=== PATIENT | male | born 1960 | race Caucasian/White ===

== ENCOUNTER 2018-02-17 18:37 | Emergency (ER) | payer MEDICAID ==
[~2018-02-17] VITALS: Ht 180.3 cm; Wt 90.9 kg
[2018-02-17 19:36] LABS: BASOPHILS % (AUTO) 0.4 % (0.0-2.0); EOSINOPHILS % (AUTO) 3.4 % (1.0-6.0); HEMATOCRIT 45.7 % (41-53); HEMOGLOBIN 15.6 g/dL (13.5-17.5); LYMPHOCYTES % (AUTO) 22.2 % (22.0-44.0); MEAN CORPUSCULAR HEMOGLOBIN 29.1 pg (26.0-34.0); MEAN CORPUSCULAR HGB CONC 34.1 G/dL (31.0-37.0); MEAN CORPUSCULAR VOLUME 85 fL (80-100); MONOCYTES # (AUTO) 0.6 K/uL (0.1-1.0); MONOCYTES % (AUTO) 7.1 % (2.0-9.0); NEUTROPHILS % (AUTO) 66.9 % (40.0-70.0); PLATELET COUNT (AUTO) 278 K/uL (150-450); RED BLOOD CELL COUNT(AUTO) 5.35 MIL/uL (4.50-5.90); RED CELL DISTRIBUTION WIDTH 14.1 % (11.5-14.5)
[2018-02-17 20:02] LABS: ALANINE AMINOTRANSFERASE 41 U/L (12-78); ALBUMIN 3.7 g/dL (3.4-5.0); ALKALINE PHOSPHATASE 94 U/L (46-116); ANION GAP 8 mmol/L (8-16); ASPARTATE AMINOTRANSFERASE 40 U/L (15-37); BILIRUBIN,TOTAL 0.4 mg/dL (0.1-1.0); CALCIUM, TOTAL 8.7 mg/dL (8.8-10.5); CARBON DIOXIDE 30 mmol/L (22-29); CHLORIDE 104 mmol/L (98-107); CREATININE 0.87 mg/dL (0.60-1.30); GLOMERULAR FILTR. RATE CALC > 60 mL/min (>60); GLUCOSE,RANDOM 107 mg/dL (70-110); POTASSIUM 3.9 mmol/L (3.5-5.1); SODIUM SERUM 142 mmol/L (136-145); TOTAL PROTEIN, SERUM 7.9 g/dL (6.4-8.2); UREA NITROGEN, BLOOD 12 mg/dL (7-18)
[2018-02-17 20:14] LABS: AMPHET/METH SCREEN,URINE POSITIVE (NEGATIVE); BARBITURATE SCREEN, URINE NEGATIVE (NEGATIVE); BENZODIAZEPINES SCREEN,URINE NEGATIVE (NEGATIVE); CANNABINOID SCREEN,URINE POSITIVE (NEGATIVE); COCAINE SCREEN,URINE NEGATIVE (NEGATIVE); METHADONE SCREEN, URINE NEGATIVE (NEGATIVE); OPIATE SCREEN,URINE NEGATIVE (NEGATIVE)
[2018-02-17 20:16] LABS: PHENCYCLIDINE SCREEN,URINE NEGATIVE (NEGATIVE)
[2018-02-17] MEDS: DiphenhydrAMINE HCL 25 MG/10 ML ELIXIR UDCUP PO ONE (21:31)
[2018-02-17] MEDS: LORazepam 2 MG TABLET PO ONE (21:31)
[2018-02-17 21:47] VITALS: BP 157/99
== END 2018-02-17 21:52 | disposition home or self-care (01) ==
LOC: EMS 18:38
DX: F41.9 Anxiety disorder, unspecified (principal); F31.9 Bipolar disorder, unspecified; F20.9 Schizophrenia, unspecified; I10 Essential (primary) hypertension; F15.10 Other stimulant abuse, uncomplicated; F12.90 Cannabis use, unspecified, uncomplicated; F17.210 Nicotine dependence, cigarettes, uncomplicated
CPT/HCPCS: 36415; 80053; 80307; 85025; 99284; 99406; G0480

== ENCOUNTER 2018-02-19 20:55 | Inpatient (IN) | payer MEDICAID ==
[~2018-02-19] VITALS: Ht 180.3 cm; Wt 86.6 kg
[2018-02-19 22:52] LABS: BASOPHILS % (AUTO) 0.5 % (0.0-2.0); EOSINOPHILS % (AUTO) 2.5 % (1.0-6.0); HEMATOCRIT 44.5 % (41-53); HEMOGLOBIN 15.2 g/dL (13.5-17.5); LYMPHOCYTES # (AUTO) 2.1 K/uL (1.0-4.8); LYMPHOCYTES % (AUTO) 16.6 % (22.0-44.0); MEAN CORPUSCULAR HEMOGLOBIN 28.9 pg (26.0-34.0); MEAN CORPUSCULAR HGB CONC 34.2 G/dL (31.0-37.0); MEAN CORPUSCULAR VOLUME 84 fL (80-100); MONOCYTES # (AUTO) 0.9 K/uL (0.1-1.0); MONOCYTES % (AUTO) 7.3 % (2.0-9.0); NEUTROPHILS # (AUTO) 9.3 K/uL (1.8-7.7); NEUTROPHILS % (AUTO) 73.1 % (40.0-70.0); PLATELET COUNT (AUTO) 297 K/uL (150-450); RED BLOOD CELL COUNT(AUTO) 5.27 MIL/uL (4.50-5.90); RED CELL DISTRIBUTION WIDTH 14.2 % (11.5-14.5)
[2018-02-19 23:00] LABS: ANION GAP 12 mmol/L (8-16); CALCIUM, TOTAL 9.2 mg/dL (8.8-10.5); CARBON DIOXIDE 27 mmol/L (22-29); CHLORIDE 99 mmol/L (98-107); CREATININE 0.89 mg/dL (0.60-1.30); GLOMERULAR FILTR. RATE CALC > 60 mL/min (>60); GLUCOSE,RANDOM 100 mg/dL (70-110); POTASSIUM 3.5 mmol/L (3.5-5.1); SODIUM SERUM 138 mmol/L (136-145); UREA NITROGEN, BLOOD 14 mg/dL (7-18)
[2018-02-19 23:06] LABS: ALANINE AMINOTRANSFERASE 39 U/L (12-78); ALBUMIN 3.9 g/dL (3.4-5.0); ALKALINE PHOSPHATASE 88 U/L (46-116); ASPARTATE AMINOTRANSFERASE 37 U/L (15-37); BILIRUBIN,TOTAL 0.6 mg/dL (0.1-1.0); TOTAL PROTEIN, SERUM 7.7 g/dL (6.4-8.2)
[2018-02-19] MEDS ORDERED: TraZODone HCL 50 MG TABLET PO ONE (23:15)
[2018-02-19] MEDS ORDERED: LORazepam 2 MG TABLET PO ONE (23:15)
[2018-02-19] MEDS ORDERED: ONDANSETRON HCL 4 MG TABLET PO ONE (23:15)
[2018-02-19] MEDS ORDERED: RisperiDONE CONC 2 MG/2 ML SOLUTION ORAL.SYG PO ONE (23:15)
[2018-02-19 23:23] LABS: AMPHET/METH SCREEN,URINE POSITIVE (NEGATIVE); BARBITURATE SCREEN, URINE NEGATIVE (NEGATIVE); BENZODIAZEPINES SCREEN,URINE NEGATIVE (NEGATIVE); CANNABINOID SCREEN,URINE POSITIVE (NEGATIVE); COCAINE SCREEN,URINE NEGATIVE (NEGATIVE); METHADONE SCREEN, URINE NEGATIVE (NEGATIVE); OPIATE SCREEN,URINE NEGATIVE (NEGATIVE)
[2018-02-19 23:27] LABS: PHENCYCLIDINE SCREEN,URINE NEGATIVE (NEGATIVE)
[2018-02-19] MEDS ORDERED: RisperiDONE 2 MG TABLET PO ONE ×2 (23:30)
[2018-02-19] MEDS ORDERED: HEPATITIS A VACCINE, INACTI [ADULT] 1,440 UNITS/ML VIAL IM ONE (23:30)
[2018-02-19] MEDS ORDERED: ZOLPIDEM TARTRATE 10 MG TABLET PO PRN (23:45)
[2018-02-19] MEDS ORDERED: HALOPERIDOL 5 MG TABLET PO PRN (23:45)
[2018-02-20 02:32] VITALS: BP 105/60
[2018-02-20] MEDS ORDERED: PNEUMOCOCCAL VACCINE POLYVALENT 0.5 ML VIAL [PPSV23] IM ONE (02:45)
[2018-02-20 07:37] LABS: HEMOGLOBIN A1C 5.9 % (4.5-6.2)
[2018-02-20 07:51] LABS: FREE T4 (FREE THYROXINE) 0.91 ng/dL (0.76-1.46); THYROID STIMULATING HORMONE 1.52 uIU/mL (0.36-3.74)
[2018-02-20 08:33] VITALS: BP 127/80
[2018-02-20 16:54] VITALS: BP 117/74
[2018-02-20] MEDS: MIRTAZAPINE 15 MG TABLET PO SCH (21:04)
[2018-02-21 08:14] VITALS: BP 133/83
[2018-02-21] MEDS: ARIPiprazole 5 MG TABLET PO SCH (10:31)
[2018-02-21 17:00] VITALS: BP 149/98
[2018-02-21] MEDS: MIRTAZAPINE 15 MG TABLET PO SCH (21:15)
[2018-02-22] MEDS ORDERED: CloNIDine HCL 0.1 MG TABLET PO PRN (00:45)
[2018-02-22 09:37] VITALS: BP 142/82
[2018-02-22] MEDS: ARIPiprazole 5 MG TABLET PO SCH (10:14)
[2018-02-22] MEDS: LISINOPRIL 10 MG TABLET PO SCH (10:15)
[2018-02-22] MEDS ORDERED: TUBERCULIN, PURIFIED PROTEIN DERIVATIVE 5 TU/0.1 ML SYG ID ONE (13:30)
[2018-02-22 16:00] VITALS: BP 137/90
[2018-02-22] MEDS: MIRTAZAPINE 15 MG TABLET PO SCH (21:29)
[2018-02-23 07:19] LABS: BASOPHILS % (AUTO) 0.4 % (0.0-2.0); EOSINOPHILS % (AUTO) 7.6 % (1.0-6.0); HEMATOCRIT 44.8 % (41-53); HEMOGLOBIN 15.2 g/dL (13.5-17.5); LYMPHOCYTES # (AUTO) 1.4 K/uL (1.0-4.8); MEAN CORPUSCULAR VOLUME 85 fL (80-100); MONOCYTES # (AUTO) 0.5 K/uL (0.1-1.0); MONOCYTES % (AUTO) 7.4 % (2.0-9.0); NEUTROPHILS # (AUTO) 4.1 K/uL (1.8-7.7); NEUTROPHILS % (AUTO) 62.6 % (40.0-70.0); PLATELET COUNT (AUTO) 241 K/uL (150-450); RED BLOOD CELL COUNT(AUTO) 5.25 MIL/uL (4.50-5.90)
[2018-02-23 07:47] LABS: ALANINE AMINOTRANSFERASE 31 U/L (12-78); ALBUMIN 3.4 g/dL (3.4-5.0); ALKALINE PHOSPHATASE 76 U/L (46-116); ANION GAP 6 mmol/L (8-16); ASPARTATE AMINOTRANSFERASE 28 U/L (15-37); BILIRUBIN,TOTAL 0.4 mg/dL (0.1-1.0); CALCIUM, TOTAL 8.4 mg/dL (8.8-10.5); CARBON DIOXIDE 28 mmol/L (22-29); CHLORIDE 104 mmol/L (98-107); CREATININE 0.61 mg/dL (0.60-1.30); GLOMERULAR FILTR. RATE CALC > 60 mL/min (>60); GLUCOSE,RANDOM 114 mg/dL (70-110); POTASSIUM 4.2 mmol/L (3.5-5.1); SODIUM SERUM 138 mmol/L (136-145); TOTAL PROTEIN, SERUM 7.3 g/dL (6.4-8.2); UREA NITROGEN, BLOOD 15 mg/dL (7-18)
[2018-02-23 09:17] VITALS: BP 136/72
[2018-02-23] MEDS: LISINOPRIL 10 MG TABLET PO SCH (09:31)
[2018-02-23] MEDS: ARIPiprazole 5 MG TABLET PO SCH (09:31)
[2018-02-23] MEDS: NICOTINE 14 MG/24 HOUR PATCH TD SCH (09:35)
[2018-02-23] MEDS: LORazepam 2 MG TABLET PO PRN (15:57)
[2018-02-23 16:30] VITALS: BP 120/68
[2018-02-23] MEDS: MIRTAZAPINE 30 MG TABLET PO SCH (20:34)
[2018-02-24 05:47] VITALS: BP 127/74
[2018-02-24] MEDS: LISINOPRIL 10 MG TABLET PO SCH (09:50)
[2018-02-24] MEDS: NICOTINE 14 MG/24 HOUR PATCH TD SCH (09:51)
[2018-02-24] MEDS: ARIPiprazole 10 MG TABLET PO SCH (09:52)
[2018-02-24] MEDS: LORazepam 2 MG TABLET PO PRN (10:04)
[2018-02-24 12:26] VITALS: BP 143/91
[2018-02-24 17:16] VITALS: BP 127/75
[2018-02-24] MEDS: MIRTAZAPINE 30 MG TABLET PO SCH (20:42)
[2018-02-25 08:33] VITALS: BP 138/92
[2018-02-25] MEDS: ARIPiprazole 10 MG TABLET PO SCH (09:50)
[2018-02-25] MEDS: LISINOPRIL 10 MG TABLET PO SCH (09:50)
[2018-02-25] MEDS: NICOTINE 14 MG/24 HOUR PATCH TD SCH (09:51)
[2018-02-25] MEDS ORDERED: ARIP10TA8 PO (12:19)
[2018-02-25] MEDS ORDERED: MIRT30 PO (12:22)
[2018-02-25] MEDS ORDERED: LISI-661 PO (12:24)
[2018-02-25] MEDS: LORazepam 2 MG TABLET PO PRN (12:49)
== END 2018-02-25 15:00 | disposition home or self-care (01) | DRG 750 ==
LOC: EMS 20:55 → 3EI 02-20 00:29
PROVIDERS: ADMIT Psychiatry & Neurology Psychiatry; ATTEND Psychiatry & Neurology Psychiatry
PROC: 3E0234Z Introduction of Serum, Toxoid and Vaccine into Muscle, Percutaneous Approach (ICD-10-PCS; principal; 2018-02-20)
DX: F25.0 Schizoaffective disorder, bipolar type (principal); Z59.0 Homelessness; D72.829 Elevated white blood cell count, unspecified; F12.10 Cannabis abuse, uncomplicated; F15.10 Other stimulant abuse, uncomplicated; F43.10 Post-traumatic stress disorder, unspecified; F17.210 Nicotine dependence, cigarettes, uncomplicated; I10 Essential (primary) hypertension; Z79.899 Other long term (current) drug therapy; Z80.3 Family history of malignant neoplasm of breast; Z82.5 Family history of asthma and other chronic lower respiratory diseases; Z91.5 Personal history of self-harm; Z23 Encounter for immunization
CPT/HCPCS: 80074; 83036; 84439; 84443; 90632; G0480; Q0162

== ENCOUNTER 2018-02-26 11:26 | Emergency (ER) | payer MEDICAID ==
[~2018-02-26] VITALS: Ht 180.3 cm; Wt 86.8 kg
[~2018-02-26 11:26] MED LIST: ARIP10TA8 PO; LISI-661 PO; MIRT30 PO
[2018-02-26 11:59] LABS: BASOPHILS % (AUTO) 0.5 % (0.0-2.0); EOSINOPHILS % (AUTO) 0.6 % (1.0-6.0); HEMATOCRIT 47.6 % (41-53); HEMOGLOBIN 16.1 g/dL (13.5-17.5); LYMPHOCYTES # (AUTO) 1.5 K/uL (1.0-4.8); LYMPHOCYTES % (AUTO) 17.5 % (22.0-44.0); MEAN CORPUSCULAR HEMOGLOBIN 28.9 pg (26.0-34.0); MEAN CORPUSCULAR HGB CONC 33.8 G/dL (31.0-37.0); MEAN CORPUSCULAR VOLUME 85 fL (80-100); MONOCYTES # (AUTO) 0.6 K/uL (0.1-1.0); MONOCYTES % (AUTO) 7.2 % (2.0-9.0); NEUTROPHILS # (AUTO) 6.3 K/uL (1.8-7.7); NEUTROPHILS % (AUTO) 74.2 % (40.0-70.0); PLATELET COUNT (AUTO) 288 K/uL (150-450); RED BLOOD CELL COUNT(AUTO) 5.58 MIL/uL (4.50-5.90); RED CELL DISTRIBUTION WIDTH 14.3 % (11.5-14.5)
[2018-02-26 12:13] LABS: ANION GAP 11 mmol/L (8-16); CALCIUM, TOTAL 9.2 mg/dL (8.8-10.5); CARBON DIOXIDE 26 mmol/L (22-29); CHLORIDE 99 mmol/L (98-107); CREATININE 0.66 mg/dL (0.60-1.30); GLOMERULAR FILTR. RATE CALC > 60 mL/min (>60); GLUCOSE,RANDOM 115 mg/dL (70-110); POTASSIUM 4.1 mmol/L (3.5-5.1); SODIUM SERUM 136 mmol/L (136-145); UREA NITROGEN, BLOOD 16 mg/dL (7-18)
[2018-02-26 12:23] LABS: ALANINE AMINOTRANSFERASE 31 U/L (12-78); ALBUMIN 4.2 g/dL (3.4-5.0); ALKALINE PHOSPHATASE 90 U/L (46-116); ASPARTATE AMINOTRANSFERASE 30 U/L (15-37); BILIRUBIN,TOTAL 0.5 mg/dL (0.1-1.0); TOTAL PROTEIN, SERUM 8.7 g/dL (6.4-8.2)
[2018-02-26 18:01] LABS: AMPHET/METH SCREEN,URINE POSITIVE (NEGATIVE); BARBITURATE SCREEN, URINE NEGATIVE (NEGATIVE); BENZODIAZEPINES SCREEN,URINE NEGATIVE (NEGATIVE); CANNABINOID SCREEN,URINE POSITIVE (NEGATIVE); COCAINE SCREEN,URINE NEGATIVE (NEGATIVE); METHADONE SCREEN, URINE NEGATIVE (NEGATIVE); OPIATE SCREEN,URINE NEGATIVE (NEGATIVE)
[2018-02-26 18:43] VITALS: BP 139/97
[2018-02-26 18:54] LABS: PHENCYCLIDINE SCREEN,URINE NEGATIVE (NEGATIVE)
== END 2018-02-26 20:10 | disposition home or self-care (01) ==
LOC: EMS 11:27
DX: F41.9 Anxiety disorder, unspecified (principal); F31.9 Bipolar disorder, unspecified; F43.10 Post-traumatic stress disorder, unspecified; F15.10 Other stimulant abuse, uncomplicated; F17.210 Nicotine dependence, cigarettes, uncomplicated; I10 Essential (primary) hypertension; F20.9 Schizophrenia, unspecified; F12.90 Cannabis use, unspecified, uncomplicated; Z79.899 Other long term (current) drug therapy
CPT/HCPCS: 36415; 80053; 80307; 85025; 99284; 99406; G0480

== ENCOUNTER 2018-03-02 18:01 | Emergency (ER) | payer MEDICAID ==
[~2018-03-02] VITALS: Ht 180.3 cm; Wt 90.9 kg
[2018-03-02 19:06] LABS: BASOPHILS % (AUTO) 0.4 % (0.0-2.0); EOSINOPHILS % (AUTO) 6.9 % (1.0-6.0); HEMOGLOBIN 13.4 g/dL (13.5-17.5); LYMPHOCYTES # (AUTO) 2.2 K/uL (1.0-4.8); LYMPHOCYTES % (AUTO) 24.3 % (22.0-44.0); MEAN CORPUSCULAR HEMOGLOBIN 28.7 pg (26.0-34.0); MEAN CORPUSCULAR HGB CONC 33.4 G/dL (31.0-37.0); MEAN CORPUSCULAR VOLUME 86 fL (80-100); MONOCYTES # (AUTO) 0.7 K/uL (0.1-1.0); MONOCYTES % (AUTO) 7.9 % (2.0-9.0); NEUTROPHILS # (AUTO) 5.5 K/uL (1.8-7.7); NEUTROPHILS % (AUTO) 60.5 % (40.0-70.0); PLATELET COUNT (AUTO) 227 K/uL (150-450); RED BLOOD CELL COUNT(AUTO) 4.66 MIL/uL (4.50-5.90)
[2018-03-02 19:27] LABS: ANION GAP 8 mmol/L (8-16); CALCIUM, TOTAL 8.2 mg/dL (8.8-10.5); CARBON DIOXIDE 27 mmol/L (22-29); CHLORIDE 104 mmol/L (98-107); CREATININE 0.76 mg/dL (0.60-1.30); GLOMERULAR FILTR. RATE CALC > 60 mL/min (>60); GLUCOSE,RANDOM 104 mg/dL (70-110); POTASSIUM 4.1 mmol/L (3.5-5.1); SODIUM SERUM 139 mmol/L (136-145); UREA NITROGEN, BLOOD 23 mg/dL (7-18)
[2018-03-02 19:33] LABS: ALANINE AMINOTRANSFERASE 35 U/L (12-78); ALBUMIN 3.2 g/dL (3.4-5.0); ALKALINE PHOSPHATASE 99 U/L (46-116); ASPARTATE AMINOTRANSFERASE 34 U/L (15-37); BILIRUBIN,TOTAL 0.3 mg/dL (0.1-1.0); TOTAL PROTEIN, SERUM 6.5 g/dL (6.4-8.2)
[2018-03-02 19:35] LABS: B-TYPE NATRIURETIC PEPTIDE 16 pg/mL (0-100)
[2018-03-02 22:00] VITALS: BP 122/70
[2018-03-02] MEDS ORDERED: LORazepam 1 MG TABLET PO ONE (22:00)
[2018-03-02] MEDS ORDERED: GuaiFENesin/D-METHORPHAN [SUGAR-FREE] 200-20MG/10 ML SYRUP UDCUP PO ONE (22:00)
[2018-03-02] MEDS ORDERED: ACETAMINOPHEN 500 MG TABLET PO ONE (22:00)
== END 2018-03-02 22:32 | disposition home or self-care (01) ==
LOC: EMS 18:01
DX: J40 Bronchitis, not specified as acute or chronic (principal); F41.9 Anxiety disorder, unspecified; F15.10 Other stimulant abuse, uncomplicated; F17.210 Nicotine dependence, cigarettes, uncomplicated; F12.90 Cannabis use, unspecified, uncomplicated; I10 Essential (primary) hypertension; F20.9 Schizophrenia, unspecified; Z79.899 Other long term (current) drug therapy
CPT/HCPCS: 93005; 99406

== ENCOUNTER 2018-03-03 20:41 | Emergency (ER) | payer MEDICAID ==
[2018-03-03 21:50] LABS: BASOPHILS % (AUTO) 0.4 % (0.0-2.0); EOSINOPHILS % (AUTO) 5.4 % (1.0-6.0); HEMATOCRIT 40.6 % (41-53); HEMOGLOBIN 13.7 g/dL (13.5-17.5); LYMPHOCYTES # (AUTO) 2.4 K/uL (1.0-4.8); LYMPHOCYTES % (AUTO) 26.9 % (22.0-44.0); MEAN CORPUSCULAR HEMOGLOBIN 28.8 pg (26.0-34.0); MEAN CORPUSCULAR HGB CONC 33.7 G/dL (31.0-37.0); MEAN CORPUSCULAR VOLUME 86 fL (80-100); MONOCYTES # (AUTO) 0.6 K/uL (0.1-1.0); MONOCYTES % (AUTO) 6.4 % (2.0-9.0); NEUTROPHILS # (AUTO) 5.5 K/uL (1.8-7.7); NEUTROPHILS % (AUTO) 60.9 % (40.0-70.0); PLATELET COUNT (AUTO) 241 K/uL (150-450); RED BLOOD CELL COUNT(AUTO) 4.74 MIL/uL (4.50-5.90); RED CELL DISTRIBUTION WIDTH 14.1 % (11.5-14.5)
[2018-03-03 22:39] LABS: ANION GAP 9 mmol/L (8-16); CALCIUM, TOTAL 8.6 mg/dL (8.8-10.5); CARBON DIOXIDE 28 mmol/L (22-29); CHLORIDE 105 mmol/L (98-107); CREATININE 0.78 mg/dL (0.60-1.30); GLOMERULAR FILTR. RATE CALC > 60 mL/min (>60); GLUCOSE,RANDOM 154 mg/dL (70-110); POTASSIUM 3.2 mmol/L (3.5-5.1); SODIUM SERUM 142 mmol/L (136-145); UREA NITROGEN, BLOOD 13 mg/dL (7-18)
[2018-03-03 22:43] LABS: ALANINE AMINOTRANSFERASE 31 U/L (12-78); ALBUMIN 3.3 g/dL (3.4-5.0); ALKALINE PHOSPHATASE 84 U/L (46-116); ASPARTATE AMINOTRANSFERASE 27 U/L (15-37); BILIRUBIN,TOTAL 0.3 mg/dL (0.1-1.0); TOTAL PROTEIN, SERUM 6.9 g/dL (6.4-8.2)
== END 2018-03-03 23:15 | disposition left against medical advice (07) ==
LOC: EMS 20:41
DX: Z00.8 Encounter for other general examination (principal); Z53.21 Procedure and treatment not carried out due to patient leaving prior to being seen by health care provider
CPT/HCPCS: 36415; 80053; 85025; G0480

== ENCOUNTER 2018-03-12 09:07 | Inpatient (IN) | payer MEDICAID ==
[~2018-03-12] VITALS: Ht 175.3 cm; Wt 86.7 kg
[2018-03-12 10:02] LABS: BASOPHILS % (AUTO) 0.5 % (0.0-2.0); EOSINOPHILS % (AUTO) 3.7 % (1.0-6.0); HEMATOCRIT 47.8 % (41-53); LYMPHOCYTES # (AUTO) 2.5 K/uL (1.0-4.8); LYMPHOCYTES % (AUTO) 29.8 % (22.0-44.0); MEAN CORPUSCULAR HEMOGLOBIN 28.7 pg (26.0-34.0); MEAN CORPUSCULAR HGB CONC 33.5 G/dL (31.0-37.0); MEAN CORPUSCULAR VOLUME 85 fL (80-100); MONOCYTES # (AUTO) 0.7 K/uL (0.1-1.0); MONOCYTES % (AUTO) 8.6 % (2.0-9.0); NEUTROPHILS # (AUTO) 4.7 K/uL (1.8-7.7); NEUTROPHILS % (AUTO) 57.4 % (40.0-70.0); PLATELET COUNT (AUTO) 301 K/uL (150-450); RED BLOOD CELL COUNT(AUTO) 5.59 MIL/uL (4.50-5.90); RED CELL DISTRIBUTION WIDTH 14.6 % (11.5-14.5)
[2018-03-12 10:07] LABS: AMPHET/METH SCREEN,URINE POSITIVE (NEGATIVE); BARBITURATE SCREEN, URINE NEGATIVE (NEGATIVE); BENZODIAZEPINES SCREEN,URINE NEGATIVE (NEGATIVE); CANNABINOID SCREEN,URINE POSITIVE (NEGATIVE); COCAINE SCREEN,URINE NEGATIVE (NEGATIVE); METHADONE SCREEN, URINE NEGATIVE (NEGATIVE); OPIATE SCREEN,URINE NEGATIVE (NEGATIVE)
[2018-03-12 10:08] LABS: PHENCYCLIDINE SCREEN,URINE NEGATIVE (NEGATIVE)
[2018-03-12 10:08] LABS: ANION GAP 9 mmol/L (8-16); CALCIUM, TOTAL 9.4 mg/dL (8.8-10.5); CARBON DIOXIDE 30 mmol/L (22-29); CHLORIDE 102 mmol/L (98-107); CREATININE 0.67 mg/dL (0.60-1.30); GLOMERULAR FILTR. RATE CALC > 60 mL/min (>60); GLUCOSE,RANDOM 104 mg/dL (70-110); POTASSIUM 3.9 mmol/L (3.5-5.1); SODIUM SERUM 141 mmol/L (136-145); UREA NITROGEN, BLOOD 14 mg/dL (7-18)
[2018-03-12 10:14] LABS: ALANINE AMINOTRANSFERASE 43 U/L (12-78); ALBUMIN 4.2 g/dL (3.4-5.0); ALKALINE PHOSPHATASE 93 U/L (46-116); ASPARTATE AMINOTRANSFERASE 37 U/L (15-37); BILIRUBIN,TOTAL 0.5 mg/dL (0.1-1.0); TOTAL PROTEIN, SERUM 8.5 g/dL (6.4-8.2)
[2018-03-12] MEDS ORDERED: OLANZapine 5 MG RAPDIS TABLET PO PRN (11:00)
[2018-03-12] MEDS ORDERED: ZOLPIDEM TARTRATE 10 MG TABLET PO PRN (11:00)
[2018-03-12] MEDS ORDERED: RisperiDONE 1 MG TABLET PO ONE (11:15)
[2018-03-12 17:44] VITALS: BP 131/78
[2018-03-12] MEDS: MIRTAZAPINE 30 MG TABLET PO SCH (21:07)
[2018-03-13 08:05] VITALS: BP 121/76
[2018-03-13] MEDS: ARIPiprazole 10 MG TABLET PO SCH (10:15)
[2018-03-13] MEDS: LISINOPRIL 10 MG TABLET PO SCH (10:16)
[2018-03-13 17:13] VITALS: BP 128/77
[2018-03-13] MEDS ORDERED: MIRTAZAPINE 30 MG TABLET PO SCH (21:00)
[2018-03-13] MEDS: MIRTAZAPINE 30 MG TABLET PO SCH (21:18)
[2018-03-14] MEDS: LORazepam 2 MG TABLET PO PRN ×2 (07:51→17:51)
[2018-03-14 08:05] VITALS: BP 135/95
[2018-03-14] MEDS ORDERED: ARIPiprazole 10 MG TABLET PO SCH (09:00)
[2018-03-14] MEDS: ARIPiprazole 10 MG TABLET PO SCH (09:10)
[2018-03-14] MEDS: LISINOPRIL 10 MG TABLET PO SCH (09:10)
[2018-03-14 17:10] VITALS: BP 118/77
[2018-03-14] MEDS: MIRTAZAPINE 30 MG TABLET PO SCH (20:18)
[2018-03-15 07:06] VITALS: BP 142/76
[2018-03-15 08:11] VITALS: BP 128/92
[2018-03-15] MEDS: LISINOPRIL 10 MG TABLET PO SCH (08:13)
[2018-03-15] MEDS: ARIPiprazole 10 MG TABLET PO SCH (08:13)
[2018-03-15 18:38] VITALS: BP 115/70
[2018-03-15] MEDS: MIRTAZAPINE 30 MG TABLET PO SCH (21:00)
[2018-03-16 09:28] VITALS: BP 116/85
[2018-03-16] MEDS: ARIPiprazole 10 MG TABLET PO SCH (10:56)
[2018-03-16] MEDS: LISINOPRIL 10 MG TABLET PO SCH (10:56)
[2018-03-16 16:30] VITALS: BP 120/78
[2018-03-16] MEDS: LORazepam 2 MG TABLET PO PRN (17:09)
[2018-03-16] MEDS: MIRTAZAPINE 30 MG TABLET PO SCH (20:46)
[2018-03-17 08:57] VITALS: BP 122/77
[2018-03-17] MEDS: BuPROPion HCL XL 150 MG ER TABLET PO SCH (10:18)
[2018-03-17] MEDS: LISINOPRIL 10 MG TABLET PO SCH (10:18)
[2018-03-17] MEDS: ARIPiprazole 10 MG TABLET PO SCH (10:18)
[2018-03-17] MEDS: LORazepam 2 MG TABLET PO PRN (16:45)
[2018-03-17 18:41] VITALS: BP 116/79
[2018-03-18] MEDS ORDERED: BUPR-93 PO (09:03)
[2018-03-18 09:39] VITALS: BP 113/58
[2018-03-18] MEDS: LISINOPRIL 10 MG TABLET PO SCH (09:57)
[2018-03-18] MEDS: BuPROPion HCL XL 150 MG ER TABLET PO SCH (09:57)
[2018-03-18] MEDS: ARIPiprazole 10 MG TABLET PO SCH (09:57)
== END 2018-03-18 10:15 | disposition home or self-care (01) | DRG 750 ==
LOC: EMS 09:07 → 3EI 14:23
PROVIDERS: ADMIT Psychiatry & Neurology Psychiatry; ATTEND Psychiatry & Neurology Psychiatry
DX: F25.0 Schizoaffective disorder, bipolar type (principal); R45.851 Suicidal ideations; Z59.0 Homelessness; F43.10 Post-traumatic stress disorder, unspecified; I10 Essential (primary) hypertension; F17.210 Nicotine dependence, cigarettes, uncomplicated; D64.9 Anemia, unspecified; E87.6 Hypokalemia; F12.10 Cannabis abuse, uncomplicated; F15.10 Other stimulant abuse, uncomplicated; F10.10 Alcohol abuse, uncomplicated; F19.10 Other psychoactive substance abuse, uncomplicated; Z80.3 Family history of malignant neoplasm of breast; Z82.5 Family history of asthma and other chronic lower respiratory diseases; Z91.5 Personal history of self-harm
CPT/HCPCS: 87081; G0480

== ENCOUNTER 2018-03-31 20:56 | Inpatient (IN) | payer MEDICAID, OTHER ==
[~2018-03-31] VITALS: Ht 180.3 cm; Wt 87.7 kg
[~2018-03-31 20:56] MED LIST changes: +BUPR-93 PO; -MIRT30 PO
[2018-03-31 22:03] LABS: BASOPHILS % (AUTO) 0.4 % (0.0-2.0); EOSINOPHILS % (AUTO) 6.4 % (1.0-6.0); HEMATOCRIT 41.2 % (41-53); HEMOGLOBIN 13.6 g/dL (13.5-17.5); LYMPHOCYTES # (AUTO) 2.7 K/uL (1.0-4.8); LYMPHOCYTES % (AUTO) 34.5 % (22.0-44.0); MEAN CORPUSCULAR HEMOGLOBIN 27.9 pg (26.0-34.0); MEAN CORPUSCULAR VOLUME 84 fL (80-100); MONOCYTES # (AUTO) 0.7 K/uL (0.1-1.0); MONOCYTES % (AUTO) 8.6 % (2.0-9.0); NEUTROPHILS # (AUTO) 3.9 K/uL (1.8-7.7); NEUTROPHILS % (AUTO) 50.1 % (40.0-70.0); PLATELET COUNT (AUTO) 227 K/uL (150-450); RED BLOOD CELL COUNT(AUTO) 4.87 MIL/uL (4.50-5.90); RED CELL DISTRIBUTION WIDTH 14.5 % (11.5-14.5)
[2018-03-31 22:18] LABS: ANION GAP 7 mmol/L (8-16); CALCIUM, TOTAL 8.5 mg/dL (8.8-10.5); CARBON DIOXIDE 27 mmol/L (22-29); CHLORIDE 102 mmol/L (98-107); CREATININE 0.77 mg/dL (0.60-1.30); GLOMERULAR FILTR. RATE CALC > 60 mL/min (>60); GLUCOSE,RANDOM 109 mg/dL (70-110); POTASSIUM 3.7 mmol/L (3.5-5.1); SODIUM SERUM 136 mmol/L (136-145); UREA NITROGEN, BLOOD 20 mg/dL (7-18)
[2018-03-31 22:24] LABS: ALANINE AMINOTRANSFERASE 46 U/L (12-78); ALBUMIN 3.3 g/dL (3.4-5.0); ALKALINE PHOSPHATASE 74 U/L (46-116); ASPARTATE AMINOTRANSFERASE 36 U/L (15-37); BILIRUBIN,TOTAL 0.3 mg/dL (0.1-1.0); TOTAL PROTEIN, SERUM 6.8 g/dL (6.4-8.2)
[2018-03-31 22:42] LABS: AMPHET/METH SCREEN,URINE POSITIVE (NEGATIVE); BARBITURATE SCREEN, URINE NEGATIVE (NEGATIVE); BENZODIAZEPINES SCREEN,URINE NEGATIVE (NEGATIVE); CANNABINOID SCREEN,URINE POSITIVE (NEGATIVE); COCAINE SCREEN,URINE NEGATIVE (NEGATIVE); METHADONE SCREEN, URINE NEGATIVE (NEGATIVE); OPIATE SCREEN,URINE NEGATIVE (NEGATIVE)
[2018-03-31 22:44] LABS: PHENCYCLIDINE SCREEN,URINE NEGATIVE (NEGATIVE)
[2018-04-01] MEDS ORDERED: ZOLPIDEM TARTRATE 10 MG TABLET PO PRN
[2018-04-01] MEDS ORDERED: HALOPERIDOL 5 MG TABLET PO PRN
[2018-04-01 11:42] VITALS: BP 127/80
[2018-04-01 16:48] VITALS: BP 128/83
[2018-04-01 18:58] VITALS: BP 128/83
[2018-04-01 20:26] VITALS: BP 109/68
[2018-04-02] MEDS: BuPROPion HCL XL 150 MG ER TABLET PO SCH (08:19)
[2018-04-02] MEDS: ARIPiprazole 10 MG TABLET PO SCH (08:19)
[2018-04-02 08:22] VITALS: BP 134/78
[2018-04-02 08:29] VITALS: BP 134/71
[2018-04-02 22:30] VITALS: BP 119/80
[2018-04-02] MEDS: LORazepam 1 MG TABLET PO PRN (22:38)
[2018-04-03 06:15] VITALS: BP 117/83
[2018-04-03] MEDS: BuPROPion HCL XL 150 MG ER TABLET PO SCH (09:05)
[2018-04-03] MEDS: ARIPiprazole 10 MG TABLET PO SCH (09:05)
[2018-04-03 09:21] VITALS: BP 123/76
[2018-04-03] MEDS: LORazepam 1 MG TABLET PO PRN (12:43)
[2018-04-03 16:15] VITALS: BP 131/85
[2018-04-04 02:22] VITALS: BP 127/77
[2018-04-04] MEDS: ARIPiprazole 10 MG TABLET PO SCH (08:37)
[2018-04-04] MEDS: BuPROPion HCL XL 150 MG ER TABLET PO SCH (08:37)
[2018-04-04 08:59] VITALS: BP 140/73
[2018-04-04] MEDS: LORazepam 1 MG TABLET PO PRN (09:19)
[2018-04-04 16:38] VITALS: BP 118/76
[2018-04-05] VITALS: BP 107/81
[2018-04-05 08:15] VITALS: BP 115/70
[2018-04-05 08:25] VITALS: BP 115/70
[2018-04-05] MEDS: BuPROPion HCL XL 150 MG ER TABLET PO SCH (09:45)
[2018-04-05] MEDS: ARIPiprazole 10 MG TABLET PO SCH (09:45)
[2018-04-05] MEDS: LORazepam 1 MG TABLET PO PRN (12:16)
[2018-04-05 16:18] VITALS: BP 125/70
[2018-04-05 18:09] VITALS: BP 120/80
[2018-04-06 01:14] VITALS: BP 121/80
[2018-04-06 02:16] VITALS: BP 121/80
[2018-04-06 08:00] VITALS: BP 111/83
[2018-04-06] MEDS: ARIPiprazole 10 MG TABLET PO SCH (09:54)
[2018-04-06] MEDS: BuPROPion HCL XL 150 MG ER TABLET PO SCH (09:54)
== END 2018-04-06 12:55 | disposition home or self-care (01) | DRG 750 ==
LOC: EMS 20:57 → AHU 04-01 11:12 → B2S 04-02 21:45
PROVIDERS: ADMIT Psychiatry & Neurology Psychiatry; ATTEND Psychiatry & Neurology Psychiatry
DX: F25.0 Schizoaffective disorder, bipolar type (principal); R45.851 Suicidal ideations; Z59.0 Homelessness; F17.210 Nicotine dependence, cigarettes, uncomplicated; F43.10 Post-traumatic stress disorder, unspecified; Z91.5 Personal history of self-harm; I10 Essential (primary) hypertension; F15.10 Other stimulant abuse, uncomplicated; F12.10 Cannabis abuse, uncomplicated
CPT/HCPCS: 99406; G0378; G0480